=== PATIENT | male | born 1995 | race American Indian/Alaskan Native ===

== ENCOUNTER 2018-08-16 16:52 | Emergency (ER) | payer BC, MEDICARE ==
[2018-08-16 17:30] VITALS: BP 128/74
--- NOTE | 2018-08-16 17:44 | Emergency Department Report ---
HPI - General Chief Complaint: Psych Time Seen by Provider: 08/16/18 17:28 - HPI HPI: 23-year-old -Filipino male presents to the emergency department from his psychiatrist's office after he had an episode of passing out. The patient has a history of schizophrenia and says that for the past 3 days he feels like everything has been "going very fast." While he was in with the psychiatrist he felt like he started having some anxiety and/or panic attack, tried to close his eyes and calm down, but then allegedly passed out. Since being in the emergency department he has been awake and alert and has no other physical complaints. His only past medical history is acid reflux. The patient was recently started on Seroquel and they discontinued Invega. He denies any hallucinations, suicidal or homicidal ideations, but does admit to paranoia. ED Past Medical Hx - Past Medical History Hx Psychiatric Treatment: Yes (Schizophrenia) - Social History Smoking Status: Never Smoker ED Review of Systems ROS: Stated complaint: SYNCOPE Other details as noted in HPI Comment: All other systems reviewed and negative Constitutional: denies: chills, fever Eyes: denies: eye pain, vision change ENT: denies: ear pain, throat pain Respiratory: denies: cough, shortness of breath Cardiovascular: syncope. denies: chest pain Gastrointestinal: denies: abdominal pain, vomiting Genitourinary: denies: dysuria, discharge Musculoskeletal: denies: back pain, arthralgia Skin: denies: rash, lesions Neurological: denies: headache, numbness Psychiatric: anxiety. denies: auditory hallucinations, visual hallucinations, homicidal thoughts, suicidal thoughts Physical Exam - Physical Exam Vital Signs: Vital Signs 08/16/18 08/16/18 17:29 17:31 Temperature 97.4 F L Pulse Rate 88 Respiratory 18 18 Rate Blood Pressure 128/74 [Left] O2 Sat by Pulse 97 97 Oximetry Physical Exam: GENERAL: The patient is well-developed well-nourished. HEENT: Normocephalic. Atraumatic. Patient has moist mucous membranes. EYES: Extraocular motions are intact. Pupils are equal and reactive to light bilaterally. No nystagmus NECK: Supple. Trachea is midline. CHEST/LUNGS: Clear to auscultation. There is no respiratory distress noted. HEART/CARDIOVASCULAR: Regular. There is no tachycardia. There is no obvious murmur. ABDOMEN: Abdomen is soft, nontender. Patient has normal bowel sounds. There is no abdominal distention. SKIN: Skin is warm and dry. NEURO: The patient is awake, alert, and oriented. The patient is cooperative. The patient has no focal neurologic deficits. The patient has normal speech. Cranial nerves II through XII grossly intact. MUSCULOSKELETAL: There is no tenderness or deformity. There is no limitation range of motion. There is no evidence of acute injury. ED Course Vital Signs 08/16/18 08/16/18 17:29 17:31 Temperature 97.4 F L Pulse Rate 88 Respiratory 18 18 Rate Blood Pressure 128/74 [Left] O2 Sat by Pulse 97 97 Oximetry ED Medical Decision Making - Lab Data Result diagrams: 08/16/18 18:01 08/16/18 18:01 - EKG Data -: EKG Interpreted by Nv EKG shows normal: sinus rhythm, axis, intervals, QRS complexes, ST-T waves Rate: normal - EKG Data When compared to previous EKG there are: previous EKG unavailable Interpretation: normal EKG - Radiology Data Radiology results: report reviewed PROCEDURE: CT head without contrast. TECHNIQUE: Computerized tomography of the head was performed without contrast material. CT DOSE LENGTH PRODUCT: 988.28 mGycm HISTORY: Syncope. COMPARISONS: None. FINDINGS: The ventricles are normal in size. The goncalves matter and white matter appear normal. There are no mass lesions. There is no intracranial hemorrhage. The calvarium appears intact. The mastoid air cells and visualized paranasal sinuses are clear. IMPRESSION: Normal study. This document is electronically signed by Migel Lawrence MD., August 16 2018 07:45:04 PM ET Transcribed By: [facility] Dictated By: MIGEL LAWRENCE MD Electronically Authenticated By: MIGEL LAWRENCE MD Signed Date/Time: 08/16/181945 - Medical Decision Making This patient presents to the emergency department after having a syncopal episode while at his psychiatrist's office. On examination he has no focal, motor or sensory deficits and his cranial nerves are intact. CT scan of the head does not show any bleed, shift, mass, ischemia, or any other acute process. EKG does not show any signs of ST elevation VT or dysrhythmia. Labs have been unremarkable and do not show any etiology of his symptoms. He was reevaluated multiple times over multiple hours and there has been no further syncopal episodes. The patient was seen ambulatory in the emergency department and both appears and feels stable. The patient has some complaints of anything appearing to go very fast in terms of his mental and psychiatric state. He does admit to some occasional paranoia but denies any suicidal or homicidal ideations or any hallucinations. The patient just recently switched from Invega to Seroquel and this may be partly to blame. He has good follow-up with psychiatry. He was seen by the psychiatric toolroom keeper who agrees that the patient does not appear to require a 1013 or inv oluntary inpatient psychiatric treatment. Vital signs stable throughout his ED course. - Differential Diagnosis schizophrenia, dysrhythmia, electrolyte abnormalities, TIA Critical Care Time: No Critical care attestation.: If time is entered above; I have spent that time in minutes in the direct care of this critically ill patient, excluding procedure time. ED Disposition Clinical Impression: Syncope Qualifiers: Syncope type: unspecified Qualified Code(s): R55 - Syncope and collapse Schizophrenia Qualifiers: Schizophrenia type: unspecified Qualified Code(s): F20.9 - Schizophrenia, unspecified Disposition: DC-01 TO HOME OR SELFCARE Is pt being admited?: No Condition: Stable Instructions: Syncope (ED), Schizophrenia (ED) Additional Instructions: Please follow-up with your psychiatrist in the next few days. Please also follow up with a primary care physician. Return to the emergency department with any further episodes of passing out, worsening of your symptoms, and with any acute distress. Referrals: LYLA ZHENG MD [Staff Physician] - 2-3 Days [facility] [Outside] - 2-3 Days Time of Disposition: 20:39
[2018-08-16 18:32] LABS: Basophils % (Auto) 0.7 % (0.0-1.8); Eosinophils % (Auto) 0.3 % (0.0-4.3); Hematocrit 43.7 % (35.5-45.6); Hemoglobin 14.6 gm/dl (11.8-15.2); Lymphocytes # (Auto) 0.9 K/mm3 (1.2-5.4); Lymphocytes % (Auto) 13.5 % (13.4-35.0); Mean Corpuscular HGB Conc 33 % (32-34); Mean Corpuscular Volume 95 fl (84-94); Monocytes # (Auto) 0.7 K/mm3 (0.0-0.8); Monocytes % (Auto) 9.6 % (0.0-7.3); Platelet Count 207 K/mm3 (140-440)
[2018-08-16 18:53] LABS: Alanine Aminotransferase 16 units/L (7-56); Albumin 4.4 g/dL (3.9-5); BUN/Creatinine Ratio 16; Blood Urea Nitrogen 11 mg/dL (9-20); Calcium 9.6 mg/dL (8.4-10.2); Hemolysis Index 4
[2018-08-16 19:26] LABS: Amphetamine Screen,Urine PRESUMPTIVE NEGATIVE; Benzodiazepines Screen,Urine PRESUMPTIVE NEGATIVE; Cannabinoid Screen,Urine PRESUMPTIVE NEGATIVE; Cocaine Screen,Urine PRESUMPTIVE NEGATIVE; Methadone Screen,Urine PRESUMPTIVE NEGATIVE; Opiate Screen,Urine PRESUMPTIVE NEGATIVE
--- NOTE | 2018-08-16 19:46 | Cat Scan Report ---
PROCEDURE: CT head without contrast. TECHNIQUE: Computerized tomography of the head was performed without contrast material. CT DOSE LENGTH PRODUCT: 988.28 mGycm HISTORY: Syncope. COMPARISONS: None. FINDINGS: The ventricles are normal in size. The goncalves matter and white matter appear normal. There are no mass lesions. There is no intracranial hemorrhage. The calvarium appears intact. The mastoid air cells and visualized paranasal sinuses are clear. IMPRESSION: Normal study. This document is electronically signed by Jl Padilla MD., August 16 2018 07:45:04 PM ET
== END 2018-08-16 21:08 | disposition home or self-care (01) ==
LOC: ED 16:52
DX: R55 Syncope and collapse (principal); F20.0 Paranoid schizophrenia; F41.0 Panic disorder [episodic paroxysmal anxiety]
CPT/HCPCS: 36415; 70450; 80053; 80307; 84443; 84484; 85025; 93005; 93010; 99284; G0480; 80320